=== PATIENT | female | born 1995 | race Caucasian/White ===

== ENCOUNTER 2023-10-03 15:27 | Emergency (ER) | payer OTHER, SELFPAY ==
[2023-10-03 15:30] VITALS: BP 128/83
[2023-10-03 17:20] VITALS: BMI 34.4
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
[2023-10-03] MEDS: NSS 1000 IV (18:32)
[2023-10-03] MEDS: ZOFRAN 4 MG IV (18:35)
[2023-10-03 18:43] LABS: Hematocrit 36.2 % (37.0-47.0); Hemoglobin 12.6 g/dL (12.0-16.0); Mean Corp Hgb Conc. 34.8 g/dL (33.0-37.0); Mean Corpuscular Volume 89.2 fL (81.0-99.0); Mean Platelet Volume 9.6 fL (7.4-10.4); Platelet Count 299 10^3/uL (130-400); Red Blood Cell Count 4.06 10^6/uL (4.20-5.40); Red Cell Dist. Width 12.7 % (11.5-14.5); White Blood Cell Count 10.3 10^3/uL (4.8-10.8)
[2023-10-03 18:55] LABS: HCG, Serum Qualitative Screen Negative
[2023-10-03 18:58] LABS: ALT (SGPT) 23 U/L (0-35); AST (SGOT) 38 U/L (14-36); Albumin 4.8 g/dl (3.5-5.0); Alkaline Phosphatase 75 U/L (38-126); Blood Urea Nitrogen 14 mg/dl (7-17); Calcium 10.3 mg/dl (8.4-10.2); Carbon Dioxide 28 mmol/L (22-30); Chloride 99 mmol/L (98-107); Estimated Creatinine Clearance 102 ml/min; Glucose 100 mg/dl (70-99); Lipase 68 U/L (23-300); Potassium 4.4 mmol/L (3.5-5.1); Sodium 139 mmol/L (135-145); Total Bilirubin 0.7 mg/dl (0.2-1.3); Total Protein 7.4 g/dl (6.3-8.2); eGFR > 60.00
[2023-10-03] MEDS: ATIVAN 0.5 MG IV (19:51)
[2023-10-03 20:02] VITALS: BP 119/92
[2023-10-03 21:05] VITALS: BP 127/93
[2023-10-03 21:22] VITALS: BP 122/70
== END 2023-10-03 21:35 | disposition home or self-care (01) ==
LOC: EMR 15:27
PROVIDERS: EMERGENCY PHYSICIAN Emergency Medicine
DX: R11.2 Nausea with vomiting, unspecified (principal); R19.7 Diarrhea, unspecified; F41.8 Other specified anxiety disorders
CPT/HCPCS: 99283; 80053; 83690; 84703; 85027

== ENCOUNTER 2023-10-05 13:04 | Emergency (ER) | payer OTHER, SELFPAY ==
[2023-10-05 13:14] VITALS: BP 121/73
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
[2023-10-05 13:45] LABS: % Basophils 0.5 % (0-2); % Eosinophils 2.1 % (0-6); % Immature Granulocytes 0.1 % (0-0.5); % Lymphocytes 29.8 % (20.5-51.1); % Monocytes 6.7 % (1.7-9.3); % Neutrophils 60.8 % (42.2-75.2); Absolute Eosinophils 0.2 10^3/uL (0-0.7); Absolute Lymphocytes 2.3 10^3/uL (1.2-3.4); Absolute Monocytes 0.5 10^3/uL (0.1-0.6); Absolute Neutrophils 4.7 10^3/uL (1.4-6.5); Hemoglobin 11.8 g/dL (12.0-16.0); Mean Corp Hgb Conc. 34.7 g/dL (33.0-37.0); Mean Corpuscular Hgb 31.1 pg (27.0-31.0); Mean Corpuscular Volume 89.7 fL (81.0-99.0); Mean Platelet Volume 9.5 fL (7.4-10.4); Nucleated Red Blood Cells % 0 %; Platelet Count 257 10^3/uL (130-400); Red Blood Cell Count 3.79 10^6/uL (4.20-5.40); Red Cell Dist. Width 12.9 % (11.5-14.5); White Blood Cell Count 7.7 10^3/uL (4.8-10.8)
[2023-10-05 14:00] LABS: HCG, Serum Qualitative Screen Negative
[2023-10-05 14:05] LABS: ALT (SGPT) 22 U/L (0-35); AST (SGOT) 33 U/L (14-36); Albumin 4.6 g/dl (3.5-5.0); Alkaline Phosphatase 69 U/L (38-126); Blood Urea Nitrogen 9 mg/dl (7-17); Carbon Dioxide 29 mmol/L (22-30); Chloride 102 mmol/L (98-107); Glucose 101 mg/dl (70-99); Potassium 3.9 mmol/L (3.5-5.1); Sodium 140 mmol/L (135-145); Total Bilirubin 0.6 mg/dl (0.2-1.3); Total Protein 7.1 g/dl (6.3-8.2); eGFR > 60.00
[2023-10-05 14:27] LABS: Lipase 84 U/L (23-300)
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
[2023-10-05] MEDS: ZOFRAN ODT (ORALLY DISINTEGRATING) 4 MG PO (16:12)
[2023-10-05] MEDS: TORADOL 30 MG IM (16:12)
[2023-10-05 17:46] VITALS: BP 116/64
[2023-10-05] MEDS: XANAX 0.25 MG PO (18:05)
== END 2023-10-05 18:22 | disposition home or self-care (01) ==
LOC: EMR 13:04
PROVIDERS: Physician Assistant; EMERGENCY PHYSICIAN Emergency Medicine
DX: S06.0XAA Concussion with loss of consciousness status unknown, initial encounter (principal); R07.0 Pain in throat; Y04.2XXA Assault by strike against or bumped into by another person, initial encounter
CPT/HCPCS: 99285; 96372; 70450; 71046; 80053; 83690; 84703; 85025; 93005

== ENCOUNTER 2025-01-17 10:45 | Emergency (ER) | payer OTHER, SELFPAY ==
[2025-01-17 10:49] VITALS: BP 127/75
--- NOTE | 2025-01-17 11:57 | ED.GENMED ---
History of Present Illness
General
Chief Complaint: Rectal Bleeding
Time Seen by Provider: 01/17/25 11:34
History of Present Illness
History of Present Illness:
see MDM
Past History
Past History
ED Past Medical History: Other (Migraines, anxiety, depression)
ED Past Surgical History: None
Social History
Tobacco: Non-smoker
Alcohol: Occasional
Drug: None
Personal: Other (Lives with firoberto�)
Phy Exam
Physical Exam
Physical Exam:
GENERAL: Alert , in no apparent distress
EYE: pupils equal and reactive
NECK: Supple
ENT: o/p clr, dry mouth
CARDIAC: Regular rate and rhythm .
LUNGS: Clear breath sounds bilaterally, no acute respiratory distress, no wheezes/rales/rhonchi
ABDOMEN: Soft, really no significant abdominal tenderness , no r/g, no cvat, normal bowel sounds
NEUROLOGICAL: Alert and oriented, no focal neuro deficits
SKIN: Warm and dry, skin intact.
MUSCULOSKELETAL: No edema, well perfused. neg kassandra's sign
PSYCH: Normal and appropriate interaction.
Course
Orders/Labs/Results
Orders:
Orders
01/17/25 11:47
CT Abd/pel (oral only)-[facility] Only Urgent
Comment:
Reason For Exam: lower abd pain, diarrhea, bloody stool, fever
Iohexol [Omnipaque] See Protocol PO NOW STA
Test Result ONCE
01/17/25 11:48
Ketorolac [Toradol] 30 mg IV NOW STA
Ondansetron Injectable [Zofran] 4 mg IV NOW STA
01/17/25 11:54
Acetaminophen Urgent
Complete Blood Count/With Diff Urgent
Comprehensive Metabolic Panel Urgent
HCG, Serum Qualitative Screen Urgent
Lipase Urgent
01/17/25 12:00
Add On- LAB Urgent
Tests Added?: tylenol level
01/17/25 14:27
Urinalysis Reflex To Culture Urgent
Date Specimen was Collected: 01/17/25
Time Specimen was Collected: 14:25
Urine Microscopic Reflex Cult Urgent
01/17/25 15:16
LevoFLOXacin [Levaquin] 750 mg PO NOW STA
Abnormal Lab Results
01/17/25 01/17/25
11:54 14:27
RBC 3.74 L 10^6/uL
(4.20-5.40)
Hgb 11.1 L g/dL
(12.0-16.0)
Hct 33.6 L %
(37.0-47.0)
RDW 14.6 H %
(11.5-14.5)
Sodium 133 L mmol/L
(135-145)
Urine Ketones 2+ A
(Negative)
Urine Albumin (Reflex) 1+ A
(Neg - Trace)
Acetaminophen < 10 L ug/ml
(10-30)
01/17/25 11:54
01/17/25 11:54
Vital Signs
Initial and Last Documented VS:
Initial Vital Signs
Temp Pulse Resp BP Pulse Ox
36.8 C 73 18 127/75 98
01/17/25 10:49 01/17/25 10:49 01/17/25 10:49 01/17/25 10:49 01/17/25 10:49
Last Documented Vital Signs
Temp Pulse Resp BP Pulse Ox
36.9 C 64 18 137/78 100
01/17/25 14:50 01/17/25 14:50 01/17/25 14:50 01/17/25 14:50 01/17/25 14:50
MDM/Problems Addressed
Differential Diagnosis Includes:
see MDM
MDM/Problems Addressed:
Note:
CHIEF COMPLAINT(S)
Nausea, vomiting, diarrhea, and chills.
HISTORY OF PRESENT ILLNESS
The patient is a 29-year-old female presenting with a one-week history of gastrointestinal symptoms. She reports nausea and vomiting with the vomiting occurring primarily in the beginning of the illness. The diarrhea has been persistent, occurring
about 6 times daily, and includes green stool with some blood. The patient also experiences rectal pain with defecation but denies any recent fever. She describes a history of chills and generalized body pain, and she initially sought care at an
urgent care facility due to dehydration. At urgent care, she received intravenous fluids and was given ondansetron (Zofran) for nausea. Tests performed included a stool occult blood test, which was positive, and a stool culture which is pending
results. She denies recent travel, antibiotic use, or a history of bowel problems. There is abdominal pain described in the lower quadrant region.
PAST MEDICAL AND SURIGICAL HISTORY
The patient denies any past surgeries.
REVIEW OF SYSTEMS
- Gastrointestinal: Nausea, diarrhea with green stool and blood, rectal pain, abdominal pain in the lower quadrant.
- Constitutional: Chills and body pain.
PHYSICAL EXAM
- Nursing notes reviewed and vital signs reviewed.
- Gastrointestinal: Rectal examination revealed no blood present at the time of the exam.
- Abdomen: Tenderness on examination in the lower quadrant.
PLAN
- Administer intravenous fluids for rehydration.
- Consider repeating laboratory tests including stool studies despite pending results from prior tests.
- Conduct a computed tomography (CT) scan of the abdomen to rule out colitis and other potential causes.
- Provide pain management as requested by the patient.
DIFFERENTIAL DIAGNOSIS
The Differential Diagnosis includes, in no particular order and is not limited to:
1. Viral gastroenteritis (e.g., norovirus)
2. Bacterial gastroenteritis (e.g., Escherichia coli, Shigella)
3. Colitis (infectious, ischemic, or inflammatory)
4. Irritable bowel syndrome with diarrhea
5. Food poisoning
6. Diverticulitis
7. Celiac disease
8. Malabsorption syndrome
9. Giardia infection
10. Crohn�s disease
vomiting, diarrhea, dehydration mild low grade temp x 1 week, fatigue
went to had labs yesterday
stool studies pending but not resulted
pt continues to feel poor.
no h/o IBD
no recent travle
CARE-UPDATE
01/17/25 - 15:15
Radiology report indicates dehydration with high attenuation in the kdineys likely due to concentrated urine near the kidney and ureters. Clinically corresponds with dehydration and ketones detected in urine.
i offered the [facility] admission for IV fluids/dehydration/pain control
she declined she had one episode of nonbloody diarrhea here
will give 3 days of levaquin (previous qtc normal)
although viral etiology suspected and stool studies are pending via urgent care, c diff and o&p and culture.
Patient opts for outpatient treatment with a three-day antibiotic course and zofran for nausea, with instructions to return if symptoms worsen.
*Pulse Oximetry
SaO2: 98
Oxygen Mode of Delivery: Room air
Patient hypoxic: no (98)
*Critical Care Note
Total Time (30-74mins, 75-104mins- exclusive of procedures): Not Applicable
ED Attending Note
-
Portions of this chart may have been created with voice recognition software.� Occasional wrong word or��sound alike� substitutions may have occurred due to the inherent limitations of voice recognition software.
Discharge Plan
Departure
Patient Disposition: Home (Routine Discharge)
Date of Disposition: 01/17/25
Time of Disposition: 15:17
Patient with high blood pressure during this ER visit?: No
Condition: Fair
Discharge Problem:
Gastroenteritis
Instructions: Viral Gastroenteritis, Adult (DC)
Prescriptions:
New
ondansetron 4 mg tablet,disintegrating
4 mg PO Q8H PRN (Reason: nausea and vomiting) Qty: 3 0RF
levofloxacin 750 mg tablet
750 mg PO DAILY Qty: 2 0RF
No Action
clonidine HCl 0.1 mg Tablet
0.1 mg PO HS
gabapentin 600 mg Tablet
600 mg PO BID
alprazolam 0.25 mg Tablet
0.25 mg PO DAILYPRN PRN (Reason: anxiety)
acetaminophen [Tylenol] 325 mg Capsule
975 mg PO Q6H PRN (Reason: mild pain)
Patient Comments:
pt states taking 12-20 tablets per day over last week 01/17/25 MO
Referrals:
NONE,* [Family Provider, Internal Medicine]
Activity Restrictions/Additional Instructions:
Your symptoms are probably from a virus.
Usually we try to let this run its course.
However you were dehydrated
Your CAT scan showed signs of that on your kidneys however there is no signs of an infection or bowel obstruction etc.
Just in case you are having diarrhea caused by bacteria like E. coli or Salmonella I will give you Levaquin once a day for 3 days. You took the first dose here. You can take it once a day starting tomorrow. Stay hydrated. If you are feeling
nauseated you could use
Zofran twice a day as needed. Return for worsening symptoms, high fever, severe pain, vomiting, dehdyration, worsening bloody diarrhea.
Interventions
Interventions:
*Risk Screen - Suicide Last Done: 01/17/25 10:49
*General Assessment Last Done: 01/17/25 12:01
*Neglect/Abuse Screening Last Done: 01/17/25 12:01
*ED COVID-19 Vaccine History Last Done: 01/17/25 12:01
*ED Influenza Vaccine History Last Done: 01/17/25 12:01
[facility] Fall Risk Assessment Tool Last Done: 01/17/25 10:45
*Nursing Disposition Last Done: 01/17/25 15:35
[facility] Assessment Last Done: 01/17/25 12:01
ED- Cardiac Assessment Last Done: 01/17/25 12:01
ED- Pulmonary Assessment Last Done: 01/17/25 12:01
Discharge Date and Time
Discharge Date/Time: 01/17/25 15:35
Print Language: ROMANSH
[2025-01-17 12:02] VITALS: BMI 34.4
[2025-01-17 12:17] LABS: Hematocrit 33.6 % (37.0-47.0); Hemoglobin 11.1 g/dL (12.0-16.0); Mean Corp Hgb Conc. 33.0 g/dL (33.0-37.0); Mean Corpuscular Volume 89.8 fL (81.0-99.0); Nucleated Red Blood Cells % 0 %; Platelet Count 309 10^3/uL (130-400); Red Cell Dist. Width 14.6 % (11.5-14.5)
[2025-01-17 12:21] LABS: HCG, Serum Qualitative Screen Negative
[2025-01-17 12:26] LABS: ALT (SGPT) 20 U/L (0-35); AST (SGOT) 25 U/L (14-36); Acetaminophen < 10 ug/ml (10-30); Albumin 4.4 g/dl (3.5-5.0); Alkaline Phosphatase 53 U/L (38-126); Blood Urea Nitrogen 8 mg/dl (7-17); Calcium 9.4 mg/dl (8.4-10.2); Carbon Dioxide 25 mmol/L (22-30); Chloride 104 mmol/L (98-107); Estimated Creatinine Clearance > 125 ml/min; Glucose 97 mg/dl (70-99); Lipase 55 U/L (23-300); Potassium 4.3 mmol/L (3.5-5.1); Sodium 133 mmol/L (135-145); Total Protein 7.1 g/dl (6.3-8.2); eGFR > 60.00
[2025-01-17] MEDS: TORADOL 30 MG IV (12:51)
[2025-01-17] MEDS: ZOFRAN 4 MG IV (12:51)
[2025-01-17] MEDS: OMNIPAQUE 50 ML PO (12:51)
[2025-01-17 14:38] LABS: Urine Character Clear (Clear)
[2025-01-17 14:48] LABS: Urine Red Blood Cell 0-2 /HPF (0-2); Urine White Cell 0-2 /HPF (0-5)
[2025-01-17 14:50] VITALS: BP 137/78
[2025-01-17] MEDS: LEVAQUIN 750 MG PO (15:32)
== END 2025-01-17 15:35 | disposition home or self-care (01) ==
LOC: EMR 10:45
PROVIDERS: Physician Assistant; EMERGENCY PHYSICIAN Emergency Medicine
DX: K52.9 Noninfective gastroenteritis and colitis, unspecified (principal)
CPT/HCPCS: 96374; 96375; 99284; 74176; 80053; 80143; 81003; 81015; 83690; 84703; 85025